=== PATIENT | male | born 1965 | race Caucasian/White ===

== ENCOUNTER 2023-05-18 13:55 | Emergency (ER) | payer BC ==
--- NOTE | 2023-05-18 14:31 | ED ---
General Adult HPI - General Source: patient, RN notes reviewed Mode of arrival: ambulatory Limitations: no limitations <Yaniv Chandler - Last Filed: 05/18/23 14:31> <Lisa Rubio - Last Filed: 05/19/23 00:29> - General Stated complaint: back pain Time Seen by Provider: 05/18/23 14:30 - History of Present Illness Initial comments: 58-year-old male presents emergency department for low back pain. Patient states that he has had a history of back surgery with fusion of his lumbar spine he states he recently moved here from [place] states that he felt something loose states he feels a warm sensation is low back after reaching into his trunk of his vehicle. Patient states his pain is unusual for him. (Yaniv Chandler) 58-year-old male with possible history of chronic back pain who presents emergency department with back pain. He recently moved here from [place]. States that he had surgery several years ago. He has suffered from chronic back pain since his fusion with some sciatica. He has several medications including [place] and muscle relaxers for the pain however he normally does not take them as he does not feel anything helps. He has been attempting to get into pain management here for injections. States that today he as he was coming into the emergency department for his back pain he received a call from them. Yesterday the patient was working on his truck and was bending over when he felt a burning sensation in his low back and states that it was slightly more intense than normal. He denies any saddle anesthesia. No bowel or bladder incontinence. States that usually when he lays down for about he can get his back to calm down however has been unsuccessful. Presents today requesting imaging to ensure that his hardware is in place. No fevers. No history of drug use. No other alleviating, precipitating modifying factors (Lisa Rubio) - Related Data Previous Rx's Medication Instructions Recorded methylPREDNISolone Dose Pack 4 mg PO DIRECTED #21 tab 05/18/23 [Medrol Dose Pack] Allergies Allergy/AdvReac Type Severity Reaction Status Date / Time No Known Allergies Allergy Verified 05/18/23 14:25 Review of Systems ROS Other: All systems not noted in ROS Statement are negative. <Yaniv Chandler - Last Filed: 05/18/23 14:31> ROS Other: All systems not noted in ROS Statement are negative. <Lisa Rubio - Last Filed: 05/19/23 00:29> ROS Statement: Those systems with pertinent positive or pertinent negative responses have been documented in the HPI. Past Medical History Past Medical History: Hearing Disorder / Deafness, Thyroid Disorder Additional Past Medical History / Comment(s): back pain History of Any Multi-Drug Resistant Organisms: None Reported Past Surgical History: Back Surgery Additional Past Surgical History / Comment(s): neck Past Psychological History: Anxiety Smoking Status: Never smoker Past Alcohol Use History: Occasional Past Drug Use History: None Reported <Yaniv Chandler - Last Filed: 05/18/23 14:31> General Exam Limitations: no limitations <Yaniv Chandler - Last Filed: 05/18/23 14:31> General appearance: alert, in no apparent distress Head exam: Present: atraumatic, normocephalic, normal inspection Eye exam: Present: normal appearance, PERRL, EOMI. Absent: scleral icterus, conjunctival injection, periorbital swelling ENT exam: Present: normal exam, mucous membranes moist Neck exam: Present: normal inspection. Absent: tenderness, meningismus, lymphadenopathy Respiratory exam: Present: normal lung sounds bilaterally. Absent: respiratory distress, wheezes, rales, rhonchi, stridor Cardiovascular Exam: Present: regular rate, normal rhythm, normal heart sounds. Absent: systolic murmur, diastolic murmur, rubs, gallop, clicks GI/Abdominal exam: Present: soft, normal bowel sounds. Absent: distended, tenderness, guarding, rebound, rigid Extremities exam: Present: normal inspection, full ROM, normal capillary refill. Absent: tenderness, pedal edema, joint swelling, calf tenderness Back exam: Present: normal inspection Neurological exam: Present: alert, oriented X3, CN II-XII intact Psychiatric exam: Present: normal affect, normal mood Skin exam: Present: warm, dry, intact, normal color. Absent: rash <Lisa Rubio - Last Filed: 05/19/23 00:29> - General Exam Comments Initial Comments: Visual Physical Exam Vital signs reviewed General: Well-appearing, nontoxic, no acute distress. Head: Normocephalic, atraumatic Eyes: PERRLA, EOMI ENT: Airway patent Chest: Nonlabored breathing Skin: No visual rash, normal skin tone Neuro: Alert and oriented 3 Musculoskeletal: No gross abnormalities (Yaniv Chandler) Course Vital Signs 05/18/23 05/18/23 14:25 17:47 Temperature 98.2 F 97.9 F Pulse Rate 70 60 Respiratory 16 18 Rate Blood Pressure 140/81 125/86 O2 Sat by Pulse 95 96 Oximetry Medical Decision Making <Yaniv Chandler - Last Filed: 05/18/23 14:31> <JoanneLisa A - Last Filed: 05/19/23 00:29> - Medical Decision Making I completed the quick note portion of this chart signed Yaniv Chandler PA-C (Yaniv Chandler) Was pt. sent in by a medical professional or institution (, PA, DIRECTOR SOFTWARE, urgent care, hospital, or fci...) When possible be specific @ -No Did you speak to anyone other than the patient for history (EMS, parent, family, police, friend...)? What history was obtained from this source @ -No Did you review nursing and triage notes (agree or disagree)? Why? @ -I reviewed and agree with nursing and triage notes Were old charts reviewed (outside hosp., previous admission, EMS record, old EKG, old radiological studies, urgent care reports/EKG's, fci records)? Report findings @ -Patient does have MRI and x-ray results from [place] which I reviewed Differential Diagnosis (chest pain, altered mental status, abdominal pain women, abdominal pain men, vaginal bleeding, weakness, fever, dyspnea, syncope, headache, dizziness, GI bleed, back pain, seizure, CVA, palpatations, mental health, musculoskeletal)? @ -Differential Back Pain: Strain, zoster, cauda equina syndrome, epidural abscess, vertebral osteomyelitis, discitis, fracture, subluxation, disc herniation, DJD, spinal stenosis, dissection, AAA, pancreatitis, peptic ulcer disease, pyelonephritis, kidney stone, this is not meant to be an all-inclusive list. EKG interpreted by me (3pts min.). @ -Not done X-rays interpreted by me (1pt min.). @ -Yes and demonstrates that the hardware is intact CT interpreted by me (1pt min.). @ -None done U/S interpreted by me (1pt. min.). @ -None done What testing was considered but not performed or refused? (CT, X-rays, U/S, labs)? Why? @ -None What meds were considered but not given or refused? Why? @ -Offered pain meds and muscle relaxers however patient refused Did you discuss the management of the patient with other professionals (professionals i.e. , PA, DIRECTOR SOFTWARE, lab, RT, psych nurse, social work assistant, lean manufacturing specialist, teacher, armored vehicle officer, family independence case manager)? Give summary @ -No Was smoking cessation discussed for >3mins.? @ -No Was critical care preformed (if so, how long)? @ -No Were there social determinants of health that impacted care today? How? (Homelessness, low income, unemployed, alcoholism, drug addiction, transportation, low edu. Level, literacy, decrease access to med. care, intermediate, rehab)? @ -No Was there de-escalation of care discussed even if they declined (Discuss DNR or withdrawal of care, Hospice)? DNR status @ -No What co-morbidities impacted this encounter? (DM, HTN, Smoking, COPD, CAD, Cancer, CVA, ARF, Chemo, Hep., AIDS, mental health diagnosis, sleep apnea, morbid obesity)? @ -Chronic back pain Was patient admitted / discharged? Hospital course, mention meds given and route, prescriptions, significant lab abnormalities, going to OR and other pertinent info. @ -Upon arrival patient was seen in the hallway. X-ray was performed to evaluate the patient's hardware. Results are discussed the patient. He is offered pain medications and muscle relaxers however he refuses. He is agreeable to a steroid injection and a Medrol Dosepak. He does have an appointment to follow up with pain management at this time. Instructed her to return for any new or worsening symptoms Undiagnosed new problem with uncertain prognosis? @ -No Drug Therapy requiring intensive monitoring for toxicity (Heparin, Nitro, Insulin, Cardizem)? @ -No Were any procedures done? @ -No Diagnosis/symptom? @ -Acute exacerbation of chronic back pain Acute, or Chronic, or Acute on Chronic? @ -Acute on chronic Uncomplicated (without systemic symptoms) or Complicated (systemic symptoms)? @ -uncomplicated Side effects of treatment? @ -No Exacerbation, Progression, or Severe Exacerbation? @ -Yes Poses a threat to life or bodily function? How? (Chest pain, [place], [place], pneumonia, PE, COPD, DKA, ARF, appy, cholecystitis, CVA, Diverticulitis, Homicidal, Suicidal, threat to staff... and all critical care pts) @ -No (Lisa Rubio) Disposition <Yaniv Chandler - Last Filed: 05/18/23 14:31> Is patient prescribed a controlled substance at d/c from ED?: No Time of Disposition: 17:21 <Lisa Rubio - Last Filed: 05/19/23 00:29> Clinical Impression: Mechanical back pain, Chronic back pain, Sciatica Disposition: HOME SELF-CARE Condition: Stable Instructions (If sedation given, give patient instructions): Chronic Back Pain (DC) Additional Instructions: Please take the steroids as directed. Follow-up with pain management. return for any new or worsening symptoms Prescriptions: methylPREDNISolone Dose Pack [Medrol Dose Pack] 4 mg PO DIRECTED #21 tab Referrals: None,Stated [Primary Care Provider] - 1-2 days
--- NOTE | 2023-05-18 14:56 | XR ---
EXAM TYPE: LUMBAR SPINE X RAY SERIES COMPARISON: NONE HISTORY: Pain TECHNIQUE: 4 views are submitted. FINDINGS: There is extensive postsurgical changes with grade 1 anterolisthesis L4-L5 and L5-S1. Disc spacers ar e seen at levels L2-L5. Transpedicular screws are noted. There is no prior exam available for compari son. No abnormal lucency seen surrounding the hardware to suggest malfunction. There is a retrolisthesis L1-L2 and L2-L3. Degenerative changes lower thoracic spine. Postsurgical ch anges extends across the SI joints on the frontal view. IMPRESSION: 1. Diffuse osteopenia. Extensive postsurgical change with alignment abnormalities as discussed above. No prior exam available for comparison. Correlate with CT scan as clinically warranted. 2. Moderate degenerative disc disease of lower thoracic spine.
[2023-05-18] MEDS ORDERED: methylPREDNISolone SOD SUCCI 125 MG/2 ML VIAL IM ONE (17:18)
[2023-05-18 18:04] VITALS: BP 125/86; PULSE 60; RESP 18; TEMP 97.9
== END 2023-05-18 17:50 | disposition home or self-care (01) ==
LOC: EC 13:55
DX: G89.29 Other chronic pain (principal); M54.50 Low back pain, unspecified; M54.30 Sciatica, unspecified side; Z86.59 Personal history of other mental and behavioral disorders
CPT/HCPCS: 72110; 99283; 96372; J2930

== ENCOUNTER → 2023-06-19 | Outpatient (CLI) | payer BC ==
[2023-06-19 11:55] VITALS: BP 157/101; PULSE 61; RESP 16
--- NOTE | 2023-06-19 14:01 | P.PAINPG ---
PQRS Measure Charge Sheet Comment: HISTORY OF PRESENT ILLNESS: A 58 yr old male as a referral from Dr Cheikh Franklin presents today w severe and chronic LBP x 6 mo secondary to post laminectomy syndrome for evaluation. Pt states pain level is provoked at 7/10 in intensity, constant, localized in the R lower lumbar spine, predominantly axial, stabbing in character w occasional shooting pain towards the back of the LEs and feet. Pain is provoked by over activity. Pain is alleviated by Pt x 6 wks in Feb 2023, massage therapy weekly x 4 wks which he is currently in, use of a TENS unit, alternating heat & ice3, medications (Tyl Arthritis), pain patches, repositioning and rest. Oswestry axial pain score at 25. PMH: OA, Hearing Disorder, Hypothyroid Disorder, Anxiety PSH: Cervical Surgery (2022), Cardiac Cath (2013), Lumbar Fusion, BL Knee Arthroscopy (1996, 2005), Biceps Tendon Repair (2015), Appendectomy (1976), Colonoscopy (2018), SH: Never smoker, Occasional ETOH use, No illicit drug use FH: Noncontributory All: See list Meds: See list REVIEW OF ORGAN SYSTEMS: CONSTITUTIONAL: No fevers or chills. No recent weight loss. NEUROLOGICAL: + numbness and tingling along the distal extremities. No seizure disorders or headaches. MUSCULOSKELETAL: + pain PSYCHIATRIC: Denies current depression or suicidal thoughts. Physical Examinations : Constitutional : Cooperative , not in acute distress . Neurologic : Cranial nerve II to XII intact. No focal neurological deficits. Psychiatric : alert & oriented x 3. Matching mood & appropriate affect. Judgment & insight intact. Musculoskeletal : Cervical Spine Motor strength in the deltoid and biceps: Normal right side. Normal Left side Motor strength biceps and the wrist extensors: Normal right side . Normal left side Motor strength in the triceps muscle: Normal right side. Normal left side Deep tendon reflexes: Normal at the biceps. Normal at Brachioradialis. Normal at triceps Vertebral body tenderness to deep palpation over Cervical facet loading test: positive bilaterally Spurling test: positive bilaterally Neck distraction test: positive bilaterally Yaniv sign: positive bilaterally Lumbar spine Motor strength lower extremities ,thigh and legs 5/5 Right side , 5/5 Left side Deep tendon reflexes : Normal Knee Jerk. Normal Ankle Jerk Vertebral body tenderness over L5 Starks Test positive over BL L5-S1 Lumbar facet Loading Test: positive Right / positive Left Range of motion of the lumbar spine Flexion 30 degrees, extension 10 degrees Straight Leg Raise test: Left/ Right positive at degrees Ken test: positive right / positive left. Severe tenderness over the Sacroiliac joint on the Right / Left sides Gaenslen test: positive bilaterally Seated flexion test: positive bilaterally. Sacral spine : Severe tenderness over the Sacroiliac joint: right side / left side Range of motion: Flexion of the lumbar spine <60 degrees Range of motion: Extension of the lumbar spine <20 degrees Gaenslen's Test positive Ken test: positive right side / left side Thigh Thrust Test Sacral Thrust Test Imaging: MRI noncontrast of the lumbar spine from 02/15/23 reviewed Assessment/ Plan : T12-S1 Fusion w L1-S1 laminectomy, post laminectomy syndrome Recommendation of BL TFESI L5-S1 #1. May need a series of injections for optimal pain relief. Risks, benefits of procedure discussed and patient verbalized understanding. Admits to anti- coagulant use or medical history of diabetes. Protocol for discontinuation/ continuation of medications sohan procedure discus sed. Minimal anesthesia provided, if clinically indicated, consisting of Versed and Fentanyl. All questions answered. I have spent greater than 30 minutes on patient care today. Dr Nunn was available by phone for the evaluation of this patient. The time was used to review the medical records including relevant urine studies and Prescription history (MAPs), review of the available imaging, evaluation and examination of the patient, coordination of care with the medical staff and if applicable referring physicians, as well as creation of the medical record Home Medications: Ambulatory Orders methylPREDNISolone Dose Pack [Medrol Dose Pack] 4 mg PO DIRECTED #21 tab 05/18/23 Controlled Substance Measures - Controlled Substance Measures Is patient prescribed a controlled substance at discharge?: No
== END ==
LOC: PNWHC3 11:03
PROVIDERS: ATTEND Specialist
DX: M96.1 Postlaminectomy syndrome, not elsewhere classified (principal); M43.27 Fusion of spine, lumbosacral region
CPT/HCPCS: 99211

== ENCOUNTER 2023-07-04 06:07 | Day surgery (SDC) | payer BC ==
[2023-06-28 12:11] VITALS: BMI 34.7
[2023-07-04] MEDS ORDERED: LACTATED RINGERS 1,000 ML IV SCH (06:19)
[2023-07-04 06:34] VITALS: RESP 18; TEMP 98
[2023-07-04] MEDS ORDERED: methylPREDNISolone ACETATE 80 MG/ML 1 ML VIAL ONE (07:07)
[2023-07-04] MEDS ORDERED: IOPAMIDOL M200 10 ML VIAL ONE (07:07)
--- NOTE | 2023-07-04 07:22 | P.PCN ---
Date of Procedure: 07/04/23 Procedure(s) Performed: PREOPERATIVE DIAGNOSIS: 1-Lumbar radiculopathy . 2-previous lumbar laminectomy and fusion surgery POSTOPERATIVE DIAGNOSIS: 1-lumbar radiculopathy. 2-previous lumbar laminectomy and fusion surgery PROCEDURE 1. Transforaminal epidural steroid injection under fluoroscopic guidance at bilateral L5-S1 level. (Fluoroscopy images stored on file in the radiology Department ) 2. Lumbar epidurogram . ANESTHESIA: Local with 1% lidocaine 3 ml. EBL: Minimal PROCEDURE INDICATION: The patient with low back pain and radiculopathy symptoms unresponsive to conservative treatment. PROCEDURE DESCRIPTION / TECHNIQUE: The patient was seen and identified in the preoperative area. Risks, benefits, complications, and alternatives were discussed with the patient. The patient agreed to proceed with the procedure and signed the consent. IV was started, and vital signs were stable. Patient was taken to the OR and time out was completed. The patient was placed in the prone position on procedure table and a pillow was placed under the abdomen to reduce lumbar lordosis. The lumbosacral area was prepped and draped in the usual sterile fashion. Critical pause was taken. Vital signs were closely monitored during the procedure. Using oblique fluoroscopy, the chin of the ``Ari dog at Right L5-S1 level was identified, and the skin and deeper tissues just below was localized with 1% lidocaine. Subsequently, a 22-gauge 5-inch spinal needle was advanced under a tunneled view fluoroscopic guidance just underneath the chin of the ``Ari dog at the right L5-S1 Under lateral fluoroscopy, the needle was then advanced to the posterior border of the interforaminal space. After negative aspiration of CSF and blood and with no paresthesias, 1 mL Isovue 200 contrast dye was injected excellent epidurogram and outlining of the nerve root Subsequently, 3 mL of block solution containing 40 mg Depo-Medrol and 2 mL of 0.9% normal saline PF was injected. Needle was removed and the same procedure was repeated at the left L5-S1 level . At the end of the procedure, skin was cleansed, and bandages were applied. COMPLICATIONS:none DISPOSITION / PLANS: The patient was placed in a supine position and transferred to the recovery area in a stable condition for observation. There was no evidence of lower extremity motor or sensory deficit after the procedure. Patient was discharged from the recovery room after meeting discharge criteria. Home discharge instructions were given to the patient by the staff. The patient was reexamined prior to discharge.
[2023-07-04 07:49] VITALS: BP 138/79; PULSE 62
--- NOTE | 2023-07-04 07:49 | FL ---
EXAMINATION TYPE: FL guided pain mgmt statistic Intraoperative/procedural fluoroscopic services were provided. Total fluoroscopy time is 4.3 seconds with a total of 5 submitted images to PACS. Please se e the operative/procedural note for further details. DAP: [id number] mGym2 Gycm2
--- NOTE | 2023-07-04 15:01 | P.PN ---
Progress Note - Text Progress Note Date: 07/04/23 This is 58 years old male, history of severe and chronic low back pain with radiation to the lower extremity bilaterally, and diagnosed with lumbar radiculopathy and he had a history of lumbar laminectomy and fusion surgery, today patient had transforaminal epidural steroid injection at L5-S1, and after patient discharged home, he called the pain clinic and he was complaining of severe positional headache, which is improved with lying supine and increases with sitting and standing position, we told the patient to come to the pain clinic for evaluation for possible blood patch, today in the preop holding area patient reports, severe positional headache which is increased with sitting and standing position, and I gave the patient the option of doing a bilateral eyes foraminal epidural blood patch at L5-S1, and I told the patient that there is no guarantee that doing this will El[place] 8 his pain/headache completely because it was technically difficult to identify the borderline of the epidural space, goes patient had a lot of hardware in the lumbar area, I discussed with the patient t he option of right conservative treatment first, and if it failed then we will proceed with the bilateral transforaminal epidural blood patch at L5-S1, patient will be given prescription for Motrin 800 mg 3 times a day when necessary for headache and also he will try Percocet 7.5/325 one tablet by mouth every 4 hours for the next 2-3 days, patient will contact the pain clinic in the next few days for reevaluation, patient denies any focal neurological deficit he denies any fever, his main problem is positional headache, for this reason the blood patch was canceled today
== END 2023-07-04 07:42 | disposition home or self-care (01) ==
LOC: ORPAIN 06:07
PROVIDERS: ATTEND Specialist
DX: M54.16 Radiculopathy, lumbar region (principal); Z79.82 Long term (current) use of aspirin; Z98.1 Arthrodesis status
CPT/HCPCS: 64483; J1040; Q9966

== ENCOUNTER → 2023-07-04 | Day surgery (SDC) | payer BC ==
[2023-07-04 14:12] VITALS: BP 160/85; PULSE 92; RESP 16; TEMP 98
== END ==
LOC: ORPAIN 13:59
PROVIDERS: ATTEND Specialist
DX: Z53.9 Procedure and treatment not carried out, unspecified reason (principal)

== ENCOUNTER → 2023-07-24 | Outpatient (CLI) | payer BC ==
[2023-07-24 11:34] VITALS: BP 147/77; PULSE 89; RESP 15; TEMP 98.4
--- NOTE | 2023-07-24 14:37 | P.PAINPG ---
PQRS Measure Charge Sheet Comment: HISTORY OF PRESENT ILLNESS: A 58 yr old male presents today w severe and chronic LBP x 6 mo secondary to post laminectomy syndrome for evaluation s/p BL TFESI L5-S1 #1. Pt states he experienced 0 % pain relief x 3 wks s/p procedure. Pt complained of HITCHCOCK s/p JENNIFER. Pt states pain level is provoked at 9/10 in intensity, constant, localized in the R lower lumbar spine, predominantly axial, stabbing in character w occasional shooting pain towards the back of the LEs and feet. Pain is provoked by over activity. Pain is alleviated by Pt x 6 wks in Feb 2023, massage therapy weekly x 4 wks which he is currently in, use of a TENS unit, alternating heat & ice, medications, pain patches, repositioning and rest. Oswestry axial pain score at 25. Interventional procedures include BL TFESI L5-S1 x1 Medications include Ibu 800mg #90, Trevorton #18 NR, Tyl Arthritis REVIEW OF ORGAN SYSTEMS: CONSTITUTIONAL: No fevers or chills. No recent weight loss. NEUROLOGICAL: + numbness and tingling along the distal extremities. No seizure disorders or headaches. MUSCULOSKELETAL: + pain PSYCHIATRIC: Denies current depression or suicidal thoughts. Physical Examinations : Constitutional : Cooperative , not in acute distress . Neurologic : Cranial nerve II to XII intact. No focal neurological deficits. Psychiatric : alert & oriented x 3. Matching mood & appropriate affect. Judgment & insight intact. Musculoskeletal : Cervical Spine Motor strength in the deltoid and biceps: Normal right side. Normal Left side Motor strength biceps and the wrist extensors: Normal right side . Normal left side Motor strength in the triceps muscle: Normal right side. Normal left side Deep tendon reflexes: Normal at the biceps. Normal at Brachioradialis. Normal at triceps Vertebral body tenderness to deep palpation over Cervical facet loading test: positive bilaterally Spurling test: positive bilaterally Neck distraction test: positive bilaterally Yaniv sign: positive bilaterally Lumbar spine Motor strength lower extremities ,thigh and legs 5/5 Right side , 5/5 Left side Deep tendon reflexes : Normal Knee Jerk. Normal Ankle Jerk Vertebral body tenderness over L5 Starks Test positive over BL L5-S1 Lumbar facet Loading Test: positive Right / positive Left Range of motion of the lumbar spine Flexion 30 degrees, extension 10 degrees Straight Leg Raise test: Left/ Right positive at degrees Ken test: positive right / positive left. Severe tenderness over the Sacroiliac joint on the Right / Left sides Gaenslen test: positive bilaterally Seated flexion test: positive bilaterally. Sacral spine : Severe tenderness over the Sacroiliac joint: right side / left side Range of motion: Flexion of the lumbar spine <60 degrees Range of motion: Extension of the lumbar spine <20 degrees Gaenslen's Test positive Ken test: positive right side / left side Thigh Thrust Test Sacral Thrust Test Imaging: MRI noncontrast of the lumbar spine from 02/15/23 reviewed Assessment/ Plan : T12-S1 Fusion w L1-S1 laminectomy, post laminectomy syndrome SCS information provided. Will follow up w spine surgeon in [place] he was referred to for additional treatment options. All questions answered. I have spent greater than 30 minutes on patient care today. Dr Nunn was available by phone for the evaluation of this patient. The time was used to review the medical records including relevant urine studies and Prescription history (MAPs), review of the available imaging, evaluation and examination of the patient, coordination of care with the medical staff and if applicable referring physicians, as well as creation of the medical record - Pain Location Bilateral Lower Back Non-Pharmacological Interventions: Ice, Massage, Position/Reposition Pharmacological Interventions: Epidural, PRN Medication PQRS Narrative: Hx Alcohol Use (MH) No Home Medications: Ambulatory Orders ALPRAZolam [Xanax] 1 mg PO BID PRN 06/28/23 Aspirin [Adult Low Dose Aspirin EC] 81 mg PO DAILY 06/28/23 Celecoxib [CeleBREX] 200 mg PO DAILY 06/28/23 Levothyroxine Sodium 200 mcg PO QAM 06/28/23 Liothyronine Sodium [Cytomel] 10 mcg PO QAM 06/28/23 Butalb/Acetaminophen/Caffeine [Fioricet 50-300-40 mg Capsule] mg PO PRN 07/04/23 Ibuprofen [Motrin] 800 mg PO Q8H PRN 10 Days #30 tab 07/04/23 oxyCODONE HCL/ACETAMINOPHEN [Percocet 7.5-325 mg] 1 tab PO Q4HR PRN 3 Days #18 tab 07/04/23 Controlled Substance Measures - Controlled Substance Measures Is patient prescribed a controlled substance at discharge?: No
== END ==
LOC: PNWHC3 10:59
PROVIDERS: ATTEND Specialist
DX: M96.1 Postlaminectomy syndrome, not elsewhere classified (principal); Z98.1 Arthrodesis status; Z79.82 Long term (current) use of aspirin
CPT/HCPCS: 99211

== ENCOUNTER 2023-09-07 07:11 | Day surgery (SDC) | payer BC ==
[2023-09-06 09:42] VITALS: BMI 34.7
[2023-09-07] MEDS: LACTATED RINGERS 1,000 ML IV SCH (08:20)
[2023-09-07 08:42] VITALS: TEMP 98
[2023-09-07] MEDS ORDERED: PROPOFOL 10 MG/ML 20 ML VIAL IV ONE (09:27)
[2023-09-07] MEDS ORDERED: LIDOCAINE 1% INJ 10MG/ML (20 ML MDV) ONE (09:27)
--- NOTE | 2023-09-07 09:30 | P.GSHP ---
History of Present Illness H&P Date: 09/07/23 Chief Complaint: Screening colonoscopy Is a 58-year-old male presents today for screening colonoscopy. Patient denies any significant GI complaints. Past Medical History Past Medical History: Hearing Disorder / Deafness, Sleep Apnea/CPAP/BIPAP, Thyroid Disorder Additional Past Medical History / Comment(s): Back pain. Bilateral hearing aids. CPAP use. History of Any Multi-Drug Resistant Organisms: None Reported Past Surgical History: Back Surgery, Orthopedic Surgery Additional Past Surgical History / Comment(s): Neck surgery, spinal fusion T11- S1. COLONOSCOPY, Past Anesthesia/Blood Transfusion Reactions: No Reported Reaction Smoking Status: Never smoker - Past Family History Father Family Medical History: Cancer Additional Family Medical History / Comment(s): Leukemia, prostate cancer. Medications and Allergies Home Medications Medication Instructions Recorded Confirmed Type ALPRAZolam [Xanax] 1 mg PO HS PRN 06/28/23 09/07/23 History Celecoxib [CeleBREX] 200 mg PO DAILY 06/28/23 09/07/23 History Levothyroxine Sodium 200 mcg PO QAM 06/28/23 09/07/23 History Liothyronine Sodium [Cytomel] 10 mcg PO QAM 06/28/23 09/07/23 History DULoxetine HCL [Cymbalta] 30 mg PO DAILY 09/06/23 09/07/23 History Allergies Allergy/AdvReac Type Severity Reaction Status Date / Time No Known Allergies Allergy Verified 09/07/23 08:34 Surgical - Exam Vital Signs Temp Pulse Resp BP Pulse Ox 98 F 65 16 134/84 97 09/07/23 08:32 09/07/23 08:32 09/07/23 08:32 09/07/23 08:32 09/07/23 08:32 - General well developed, well nourished, no distress - Eyes PERRL - ENT normal pinna - Neck no masses - Respiratory normal expansion - Cardiovascular Rhythm: regular - Abdomen Abdomen: soft, non tender Assessment and Plan Assessment: We'll perform screening colonoscopy.
--- NOTE | 2023-09-07 09:45 | P.OP ---
Date of Procedure: 09/07/23 Preoperative Diagnosis: Screening colonoscopy Postoperative Diagnosis: Rectal polyp Procedure(s) Performed: Colonoscopy Anesthesia: MAC Surgeon: Rex Carnes Pathology: other (Rectal polyp) Condition: stable Disposition: PACU Description of Procedure: The patient's placed on the endoscopy table in the lateral position. He received IV sedation. Digital rectal exam performed. This revealed no abnormalities. The flexible colonoscope was then placed patient anus passed throughout the entire colon. The ileocecal valve was visualized. The cecum, ascending and transverse colon appeared normal. The descending and sigmoid colon appeared normal. In the rectum and small pocket polyp. Removed with snare. The scope was then withdrawn for patient.
[2023-09-07 10:34] VITALS: BP 125/74; PULSE 50; RESP 16
== END 2023-09-07 11:00 | disposition home or self-care (01) ==
LOC: ORWHC2ENDO 07:11
PROVIDERS: ATTEND Surgery
DX: Z12.11 Encounter for screening for malignant neoplasm of colon (principal); K62.1 Rectal polyp; G47.33 Obstructive sleep apnea (adult) (pediatric); E07.9 Disorder of thyroid, unspecified; H91.90 Unspecified hearing loss, unspecified ear; F41.9 Anxiety disorder, unspecified; Z98.890 Other specified postprocedural states; Z85.46 Personal history of malignant neoplasm of prostate; Z79.890 Hormone replacement therapy; Z79.899 Other long term (current) drug therapy
CPT/HCPCS: 88305; 45385; J2001; J2704; 45380

== ENCOUNTER → 2023-09-25 | Outpatient (CLI) | payer BC ==
--- NOTE | 2023-09-25 12:24 | XR ---
EXAMINATION TYPE: XR lumbar spine 2 or 3V DATE OF EXAM: 09/25/2023 12:05 PM CLINICAL INDICATION:Male, 58 years old with history of Z98.1 arthrodesis status; COMPARISON: None TECHNIQUE: XR lumbar spine 2 or 3V - Frontal, lateral and coned in L5-S1 lateral views of the spine. FINDINGS: Fixation hardware extends from T12 to S1 with hardware intact. Disc spaces at L2-L3, L3-L4 and L4-L5. The posterior elements are poorly visualized due to fixation hardware. There is suggestion of osseous fusion of the posterior elements bilaterally. Laminectomy changes are present. No evidenc e of any acute osseous pathology. No evidence of loss of vertebral body height is seen. There is nor mal alignment of the lumbar vertebral bodies. No significant degeneration changes throughout the spin e. IMPRESSION: 1. Postsurgical changes throughout the spine with hardware intact. Consider further evaluation of th e abdomen with CT for evaluation for osseous fusion at multiple levels. 2. Moderate degeneration changes throughout the spine.
== END | disposition home or self-care (01) ==
LOC: RADXRMAIN 11:45
DX: M51.37 Other intervertebral disc degeneration, lumbosacral region (principal); Z98.1 Arthrodesis status
CPT/HCPCS: 72100

== ENCOUNTER 2023-11-01 21:13 | Emergency (ER) | payer BC ==
[2023-11-01] MEDS: GLUCAGON 1 MG/ML VIAL IM STA (21:55)
--- NOTE | 2023-11-01 22:12 | XR ---
EXAMINATION TYPE: XR chest 2V DATE OF EXAM: 11/01/2023 COMPARISON: None INDICATION: Foreign body sensation in esophagus TECHNIQUE: Frontal and lateral views of the chest are obtained. FINDINGS: The heart size is normal. The pulmonary vasculature is normal. The lungs are clear. No suspicious radiopaque foreign bodies within the [id number] IMPRESSION: 1. No acute pulmonary process. 2 no suspicious radiopaque foreign bodies.
[2023-11-01 22:32] LABS: Basophils # (A) 0.1 k/uL (0-0.2); Basophils % (A) 1 %; Eosinophils # (A) 0.2 k/uL (0-0.7); Eosinophils % (A) 3 %; HCT 48.2 % (39.0-53.0); HGB 15.5 gm/dL (13.0-17.5); Lymphocytes # (A) 1.4 k/uL (1.0-4.8); Lymphocytes % (A) 19 %; MCH 27.6 pg (25.0-35.0); MCHC 32.1 g/dL (31.0-37.0); MCV 86.1 fL (80.0-100.0); Monocytes # (A) 0.4 k/uL (0-1.0); Monocytes % (A) 6 %; Neutrophils # (A) 5.2 k/uL (1.3-7.7); Neutrophils % (A) 70 %; Platelet Count 195 k/uL (150-450); RDW 14.4 % (11.5-15.5); WBC 7.4 k/uL (3.8-10.6)
[2023-11-01] MEDS: MORPHINE SULFATE 4 MG/ML SYRINGE IVP STA (22:35)
[2023-11-01 22:47] VITALS: TEMP 98.1
[2023-11-01 22:49] LABS: ALT 33 U/L (4-49); AST 32 U/L (17-59); African American GFR (CKD) >90 (>60 ml/min/1.73 sqM); Albumin 4.8 g/dL (3.5-5.0); Alkaline Phosphatase 98 U/L (38-126); Anion Gap 15 mmol/L; Blood Urea Nitrogen 18 mg/dL (9-20); Calcium 9.3 mg/dL (8.4-10.2); Carbon Dioxide 18 mmol/L (22-30); Chloride 106 mmol/L (98-107); Glucose 173 mg/dL (74-99); Non-African American GFR(CKD) >90 (>60 ml/min/1.73 sqM); Potassium 3.2 mmol/L (3.5-5.1); Sodium 139 mmol/L (137-145); Total Bilirubin 0.8 mg/dL (0.2-1.3); Total Protein 8.2 g/dL (6.3-8.2)
--- NOTE | 2023-11-01 23:24 | ED ---
Abdominal Pain HPI - General Chief Complaint: Abdominal Pain Stated Complaint: HeartBurn, Vomiting Time Seen by Provider: 11/01/23 21:35 Source: patient Mode of arrival: ambulatory Limitations: no limitations - History of Present Illness Initial Comments: Izaiah is a 58yo M who presents to the ER via private vehicle for esophageal food bolus. Patient reports that he was eating steak and it got stuck in his esophagus. Feels like it is stuck in his mid chest, for the past hour he cannot even swallow his saliva. Patient reports this has happened once before and resolved without intervention after about 6-8hrs. - Related Data Home Medications Medication Instructions Recorded Confirmed ALPRAZolam [Xanax] 1 mg PO HS PRN 06/28/23 09/07/23 Celecoxib [CeleBREX] 200 mg PO DAILY 06/28/23 09/07/23 Levothyroxine Sodium 200 mcg PO QAM 06/28/23 09/07/23 Liothyronine Sodium [Cytomel] 10 mcg PO QAM 06/28/23 09/07/23 DULoxetine HCL [Cymbalta] 30 mg PO DAILY 09/06/23 09/07/23 Allergies Allergy/AdvReac Type Severity Reaction Status Date / Time No Known Allergies Allergy Verified 11/01/23 21:27 Review of Systems ROS Statement: Those systems with pertinent positive or pertinent negative responses have been documented in the HPI. ROS Other: All systems not noted in ROS Statement are negative. Past Medical History Past Medical History: Hearing Disorder / Deafness, Sleep Apnea/CPAP/BIPAP, Thyroid Disorder Additional Past Medical History / Comment(s): Back pain. Bilateral hearing aids. CPAP use. History of Any Multi-Drug Resistant Organisms: None Reported Past Surgical History: Back Surgery, Orthopedic Surgery Additional Past Surgical History / Comment(s): Neck surgery, spinal fusion T11- S1. COLONOSCOPY, Past Anesthesia/Blood Transfusion Reactions: No Reported Reaction Past Psychological History: Anxiety Smoking Status: Never smoker Past Alcohol Use History: Occasional Past Drug Use History: None Reported - Past Family History Father Family Medical History: Cancer Additional Family Medical History / Comment(s): Leukemia, prostate cancer. General Exam - General Exam Comments Initial Comments: Physical Exam GENERAL: Patient is well-developed and well-nourished. Appears uncomfortable HENT: Normocephalic, Atraumatic. EYES: PERRL, EOMI PULMONARY: Unlabored respirations CARDIOVASCULAR: RRR Warm and well perfused extremities ABDOMEN: Non-distended SKIN: No rashes or bruising : Deferred NEUROLOGIC: Alert and oriented Normal speech Normal gait MUSCULOSKELETAL: Moving all extremities with no apparent injury PSYCHIATRIC: No SI/HI Limitations: no limitations Course Vital Signs 11/01/23 11/01/23 21:27 22:44 Temperature 98.1 F Pulse Rate 81 74 Respiratory 20 Rate Blood Pressure 148/89 O2 Sat by Pulse 94 L 97 Oximetry Medical Decision Making - Medical Decision Making Was pt. sent in by a medical professional or institution (, MIL[employer], MIN[employer] INDU[employer]Y TEACHER, urgent care, hospital, or group home...) When possible be specific @ -No Did you speak to anyone other than the patient for history (EMS, parent, family, police, friend...)? What history was obtained from this source @ -No Did you review nursing and triage notes (agree or disagree)? Why? @ -I reviewed and agree with nursing and triage notes Were old charts reviewed (outside hosp., previous admission, EMS record, old EKG, old radiological studies, urgent care reports/EKG's, group home records)? Report findings @ -No old charts were reviewed Differential Diagnosis (chest pain, altered mental status, abdominal pain women, abdominal pain men, vaginal bleeding, weakness, fever, dyspnea, syncope, headache, dizziness, GI bleed, back pain, seizure, CVA, palpatations, mental health)? @ -Not applicable EKG interpreted by me (3pts min.). @ -As above X-rays interpreted by me (1pt min.). @ -[No free air or evidence of perforation CT interpreted by me (1pt min.). @ -None done U/S interpreted by me (1pt. min.). @ -None done What testing was considered but not performed or refused? (CT, X-rays, U/S, labs)? Why? @ -None What meds were considered but not given or refused? Why? @ -None Did you discuss the management of the patient with other professionals (professionals i.e. MILAGROS Acevedo, MINERAL INDU[employer]Y TEACHER, lab, RT, psych nurse, social insurance specialist, insulation supervisor, teacher, fiscal officer, case operator)? Give summary @ -With Dr. Holbrook who recommends transfer for evaluation by GI Was smoking cessation discussed for >3mins.? @ -No Was critical care preformed (if so, how long)? @ -No Were there social determinants of health that impacted care today? How? (Homelessness, low income, unemployed, alcoholism, drug addiction, transportation, low edu. Level, literacy, decrease access to med. care, alf, rehab)? @ -No Was there de-escalation of care discussed even if they declined (Discuss DNR or withdrawal of care, Hospice)? DNR status @ -No What co-morbidities impacted this encounter? (DM, HTN, Smoking, COPD, CAD, Cancer, CVA, ARF, Chemo, Hep., AIDS, mental health diagnosis, sleep apnea, morbid obesity)? @ -None Was patient admitted / discharged? Hospital course, mention meds given and route, prescriptions, significant lab abnormalities, going to OR and other pertinent info. @ -Discharged Patient was seen and evaluated patient reports feeling like he swallowed a piece of steak and it is stuck in his esophagus. Chest x-ray shows no signs of perforation, patient is not tolerating oral secretions. Patient was given glucagon patient tried that he will stop maneuver with em avinash, he had multiple of sowed's of nonbloody nonbilious emesis in which she regurgitated his saliva that he could not tolerate. He was then given some morphine and nitro, patient reported feeling much better less pressure tolerating some liquids. I did offer the patient transfer to outside facility for evaluation by GI however patient has experienced this in the past that has resolved without intervention so he would like to be discharged home he will return or seek care at an outside facility should he have persistent symptoms. Advised the patient that even if the symptoms resolve he needs follow-up with GI for further evaluation to see if there is a mass or stricture or any reason for this obstruction. Undiagnosed new problem with uncertain prognosis? @ -No Drug Therapy requiring intensive monitoring for toxicity (Heparin, Nitro, Insulin, Cardizem)? @ -No Were any procedures done? @ -No Diagnosis/symptom? @ -Esophageal food bolus Acute, or Chronic, or Acute on Chronic? @ -Acute Uncomplicated (without systemic symptoms) or Complicated (systemic symptoms)? @ -Uncomplicated Side effects of treatment? @ -No Exacerbation, Progression, or Severe Exacerbation? @ -No Poses a threat to life or bodily function? How? (Chest pain, USA, PA, pneumonia, PE, COPD, DKA, ARF, appy, cholecystitis, CVA, Diverticulitis, Homicidal, Suicidal, threat to staff... and all critical care pts) @ -No - Lab Data Result diagrams: 11/01/23 22:20 11/01/23 22:20 Lab Results 11/01/23 11/01/23 Range/Units 22:20 22:20 WBC 7.4 (3.8-10.6) k/uL RBC 5.60 (4.30-5.90) m/uL Hgb 15.5 (13.0-17.5) gm/dL Hct 48.2 (39.0-53.0) % MCV 86.1 (80.0-100.0) fL MCH 27.6 (25.0-35.0) pg MCHC 32.1 (31.0-37.0) g/dL RDW 14.4 (11.5-15.5) % Plt Count 195 (150-450) k/uL MPV 8.0 Neutrophils % 70 % Lymphocytes % 19 % Monocytes % 6 % Eosinophils % 3 % Basophils % 1 % Neutrophils # 5.2 (1.3-7.7) k/uL Lymphocytes # 1.4 (1.0-4.8) k/uL Monocytes # 0.4 (0-1.0) k/uL Eosinophils # 0.2 (0-0.7) k/uL Basophils # 0.1 (0-0.2) k/uL Sodium 139 (137-145) mmol/L Potassium 3.2 L (3.5-5.1) mmol/L Chloride 106 (98-107) mmol/L Carbon Dioxide 18 L (22-30) mmol/L Anion Gap 15 mmol/L BUN 18 (9-20) mg/dL Creatinine 0.89 (0.66-1.25) mg/dL Est GFR (CKD-EPI)AfAm >90 (>60 ml/min/1.73 sqM) Est GFR (CKD-EPI)NonAf >90 (>60 ml/min/1.73 sqM) Glucose 173 H (74-99) mg/dL Calcium 9.3 (8.4-10.2) mg/dL Total Bilirubin 0.8 (0.2-1.3) mg/dL AST 32 (17-59) U/L ALT 33 (4-49) U/L Alkaline Phosphatase 98 (38-126) U/L Total Protein 8.2 (6.3-8.2) g/dL Albumin 4.8 (3.5-5.0) g/dL - EKG Data -: EKG Interpreted by Me EKG Comments: EKG interpreted by me EKG obtained due to central chest pain EKG obtained at 2317 rate is 55 rhythm is sinus bradycardia with a right bundle branch block, [place] 189 QRS 135 QTc [address] elevations or depressions no evidence of ischemia or infarction. Disposition Clinical Impression: Food bolus obstruction of intestine Disposition: HOME SELF-CARE Condition: Stable Additional Instructions: If symptoms resolve you still need to follow-up with GI for endoscopy, if symptoms do not resolve seek care at the emergency department again for reevaluation the nearest emergency department that will have access to a GI specialist from this location [facility] Is patient prescribed a controlled substance at d/c from ED?: No Referrals: Esdras Trinidad Jr, DO [Primary Care Provider] - 1-2 days
[2023-11-01] MEDS: SODIUM CHLORIDE 0.9% 1,000 ML IV SCH (23:40)
[2023-11-02] MEDS: NITROGLYCERIN SL TABS 0.4 MG TAB SUBLINGUAL STA (00:18)
[2023-11-02 02:25] VITALS: BP 149/89; PULSE 79; RESP 16
== END 2023-11-02 01:43 | disposition home or self-care (01) ==
LOC: EC 21:13
DX: K56.699 Other intestinal obstruction unspecified as to partial versus complete obstruction (principal)
CPT/HCPCS: 99284 ×2; 96374 ×2; 96372 ×2; 96361 ×4; 36415; 93005; 80053; 85025; 71046; J2270; J1610

== ENCOUNTER 2023-12-16 10:16 | Emergency (ER) | payer BC ==
--- NOTE | 2023-12-16 11:13 | ED ---
Back Pain HPI - General Chief Complaint: Back Pain/Injury Stated Complaint: Back Pain Time Seen by Provider: 12/16/23 11:10 Source: patient, RN notes reviewed Mode of arrival: ambulatory Limitations: no limitations - History of Present Illness Initial Comments: This is a 58-year-old male who presents to the emergency department for left lower back pain. States that it started 4 days ago after he went to bend over to pick something up. He felt a pop or a crack sensation in his back when he did this. States that he had a lumbar fusion in [place] last year and is concerned about a problem with the cage. He is using [id number] medication without any relief. Describes this as more of a burning sensation. Denies any loss of bowel/bladder control or saddle anesthesia. MD Complaint: back pain - Related Data Home Medications Medication Instructions Recorded Confirmed ALPRAZolam [Xanax] 1 mg PO HS PRN 06/28/23 09/07/23 Celecoxib [CeleBREX] 200 mg PO DAILY 06/28/23 09/07/23 Levothyroxine Sodium 200 mcg PO QAM 06/28/23 09/07/23 Liothyronine Sodium [Cytomel] 10 mcg PO QAM 06/28/23 09/07/23 DULoxetine HCL [Cymbalta] 30 mg PO DAILY 09/06/23 09/07/23 Previous Rx's Medication Instructions Recorded HYDROcodone/APAP 7.5-325MG [Bishop 1 tab PO Q6HR PRN 3 Days #12 tab 12/16/23 7.5-325] methocarbamoL [Robaxin-750] 1,500 mg PO TID PRN #30 tab 12/16/23 predniSONE 50 mg PO DAILY 5 Days #5 tab 12/16/23 Allergies Allergy/AdvReac Type Severity Reaction Status Date / Time No Known Allergies Allergy Verified 11/01/23 21:27 Review of Systems ROS Statement: Those systems with pertinent positive or pertinent negative responses have been documented in the HPI. ROS Other: All systems not noted in ROS Statement are negative. Past Medical History Past Medical History: Hearing Disorder / Deafness, Sleep Apnea/CPAP/BIPAP, Thyroid Disorder Additional Past Medical History / Comment(s): Back pain. Bilateral hearing aids. CPAP use. History of Any Multi-Drug Resistant Organisms: None Reported Past Surgical History: Back Surgery, Orthopedic Surgery Additional Past Surgical History / Comment(s): Neck surgery, spinal fusion T11- S1. COLONOSCOPY, Past Anesthesia/Blood Transfusion Reactions: No Reported Reaction Past Psychological History: Anxiety Smoking Status: Never smoker Past Alcohol Use History: Occasional Past Drug Use History: None Reported - Past Family History Father Family Medical History: Cancer Additional Family Medical History / Comment(s): Leukemia, prostate cancer. General Exam Limitations: no limitations General appearance: alert, in no apparent distress Head exam: Present: atraumatic, normocephalic, normal inspection Respiratory exam: Present: normal lung sounds bilaterally. Absent: respiratory distress, wheezes, rales, rhonchi, stridor Cardiovascular Exam: Present: regular rate, normal rhythm, normal heart sounds. Absent: systolic murmur, diastolic murmur, rubs, gallop, clicks Back exam: Present: other (Tenderness to palpation over the left lower back) Neurological exam: Present: alert, oriented X3, CN II-XII intact Psychiatric exam: Present: normal affect, normal mood Skin exam: Present: warm, dry, intact, normal color. Absent: rash Course Vital Signs 12/16/23 12/16/23 12/16/23 10:55 12:21 13:59 Temperature 98.1 F 99.0 F 97.8 F Pulse Rate 62 69 51 L Respiratory 16 16 16 Rate Blood Pressure 159/79 138/79 O2 Sat by Pulse 98 97 95 Oximetry 12/16/23 14:32 Temperature Pulse Rate 64 Respiratory 18 Rate Blood Pressure 143/84 O2 Sat by Pulse 97 Oximetry Medical Decision Making - Medical Decision Making This is a 58 year old male who presents to the emergency department for back pain. Was pt. sent in by a medical professional or institution? @ -No Did you speak to anyone other than the patient for history? @ -No Did you review nursing and triage notes? @ -Yes, and I agree, it is accurate with regards to the patient's symptoms. Were old charts reviewed? @ -No Differential Diagnosis? @ -Differential Back Pain: Strain, zoster, cauda equina syndrome, epidural abscess, vertebral osteomyelitis, discitis, fracture, subluxation, disc herniation, DJD, spinal stenosis, dissection, AAA, pancreatitis, peptic ulcer disease, pyelonephritis, kidney stone, this is not meant to be an all-inclusive list. EKG interpreted by me (3pts min.)? @ -Not obtained X-rays interpreted by me (1pt min.)? @ -X-ray of the lumbar spine obtained. My interpretation identifies a broken left sacroiliac screw CT interpreted by me (1pt min.)? @ -Not obtained U/S interpreted by me (1pt. min.)? @ -Not obtained What testing was considered but not performed? (CT, X-rays, U/S, labs)? Why? @ -None What meds were considered but not given? Why? @ -None Did you discuss the management of the patient with other professionals? @ -No Did you reconcile home meds? @ -No Was smoking cessation discussed for >3mins.? @ -No Was critical care preformed (if so, how long)? @ -No Were there social determinants of health that impacted care today? How? (Homelessness, low income, unemployed, alcoholism, drug addiction, transportation, low edu. Level, literacy, decrease access to med. care, residential, rehab)? @ -No Was there de-escalation of care discussed even if they declined? (Discuss DNR or withdrawal of care, Hospice)? @ -No What co-morbidities impacted this encounter? (DM, HTN, Smoking, COPD, CAD, Cancer, CVA, Hep., AIDS, mental health diagnosis, sleep apnea, morbid obesity)? @ -None Was patient admitted / discharged? @ -Discharged. X-ray of the lumbar spine obtained demonstrating a fracture of the left sacroiliac joint screw. The remainder of the hardware is intact. There is no evidence of any acute osseous fractures. Pain was treated in the emergency department. Prescription for prednisone, Robaxin, and Bishop provided with dosing instructions reviewed. He was given information for follow-up with orthopedic spine and he is advised to contact them for a follow-up appointment. Undiagnosed new problem with uncertain prognosis? @ -None Drug Therapy requiring intensive monitoring for toxicity (Heparin, Nitro, Insulin, Cardizem)? @ -None Were any procedures done? @ -None Diagnosis/symptom? @ -History of lumbar and sacroiliac fusion, breakdown of internal fixation device of vertebrae Acute, or Chronic, or Acute on Chronic? @ -Acute Uncomplicated (without systemic symptoms) or Complicated (systemic symptoms)? @ -Uncomplicated Side effects of treatment? @ -None Exacerbation, Progression, or Severe Exacerbation] @ -Not applicable Poses a threat to life or bodily function? @ -The pain may limit his functioning Return precautions reviewed in depth, the patient is instructed to return to the emergency department with any new, worsening, or concerning symptoms. Patient verbalized understanding. This case was discussed in detail with the attending ED physician, Dr. Ayala. Presentation, findings, and treatment plan discussed in detail as well. - Radiology Data Radiology results: report reviewed, image reviewed Disposition Clinical Impression: History of lumbar fusion, Fusion of sacral region of spine, Mechanical breakdown of internal fixation device of vertebrae Disposition: HOME SELF-CARE Additional Instructions: Return to the emergency department with any new, worsening, or concerning symptoms. Take the prednisone daily for 5 days. You can take the Robaxin as 1 to 2 tablets up to 3-4 times daily. Take the Bishop sparingly when your pain is the most severe. You can continue applying the capsaicin cream provided here up to 4 times daily to see if that offers any additional relief. Contact the information assurance specialist listed below for a follow-up appointment. Let them know that you were seen in the emergency department and found to have a broken screw of the left sacroiliac joint. They will schedule you for a follow-up appointment. Follow up with your primary care provider in 1-2 days. Prescriptions: HYDROcodone/APAP 7.5-325MG [Bishop 7.5-325] 1 tab PO Q6HR PRN 3 Days #12 tab PRN Reason: Pain predniSONE 50 mg PO DAILY 5 Days #5 tab methocarbamoL [Robaxin-750] 1,500 mg PO TID PRN #30 tab PRN Reason: Pain Is patient prescribed a controlled substance at d/c from ED?: Yes When asked, does pt state using other controlled substances?: Yes If prescribed controlled substance>3 days was MAPS reviewed?: Prescribed <3 Days Referrals: Esdras Trinidad Jr, DO [Primary Care Provider] - 1-2 days Ludwin Muse DO [Doctor of Osteopathic Medicine] - 1-2 days Arcenio Yusuf DO [Doctor of Osteopathic Medicine] - 1-2 days
--- NOTE | 2023-12-16 12:07 | XR ---
EXAMINATION TYPE: XR lumbar spine 2 or 3V DATE OF EXAM: 12/16/2023 11:31 AM CLINICAL INDICATION:Male, 58 years old with history of back pain; [facility] COMPARISON: 09/25/2023 TECHNIQUE: XR lumbar spine 2 or 3V - Frontal, lateral and coned in L5-S1 lateral views of the spine. FINDINGS: Fixation changes throughout the spine spine and sacroiliac joints is fractured left sacroil iac joint screw. The remainder of the hardware appears intact.. Grade 2 anterolisthesis of L5 on S1. Retrolisthesis of L1 on L2. Moderate multilevel degeneration with osteophyte formation disc space lena rowing and facet arthropathy. IMPRESSION: 1. New Fracture left sacroiliac joint screw., The remainder of the hardware appears intact. 2. No evidence of acute osseous fracture 3. Moderate multilevel degeneration of the spine.
[2023-12-16] MEDS: KETOROLAC 15 MG/ML 1 ML VIAL IVP STA (13:32)
[2023-12-16] MEDS: DEXAMETHASONE SOD PHOSPHATE 10 MG/ML 1 ML VIAL IVP STA (13:37)
[2023-12-16] MEDS: ORPHENADRINE 30 MG/ML 2 ML VIAL IVP STA (13:41)
[2023-12-16] MEDS: CAPSAICIN 0.025% CREAM 60 GM TUBE TOPICAL ONE (13:47)
[2023-12-16] MEDS: HYDROmorphone 1 MG/ML 1 ML SYRINGE IVP STA (13:52)
[2023-12-16 14:02] VITALS: TEMP 97.8
[2023-12-16 14:33] VITALS: BP 143/84; PULSE 64; RESP 18
== END 2023-12-16 14:35 | disposition home or self-care (01) ==
LOC: EC 10:16
DX: M43.28 Fusion of spine, sacral and sacrococcygeal region (principal); M96 Intraoperative and postprocedural complications and disorders of musculoskeletal system, not elsewhere classified
CPT/HCPCS: 72100; 99283; 96374; 96375 ×3; J1100; J2360; J1170; J1885

== ENCOUNTER → 2024-11-27 | Outpatient (CLI) | payer BC ==
--- NOTE | 2024-11-27 11:48 | XR ---
EXAMINATION TYPE: XR lumbar spine 2 or 3V DATE OF EXAM: 11/27/2024 11:18 AM COMPARISON: 12/16/2023 CLINICAL INDICATION: Male, 59 years old with history of M54.50 LOW BACK PAIN, pain TECHNIQUE: 3 view(s) obtained. FINDINGS: Pedicle screws and fixation rods are present through the lumbar spine. Disc spaces are present L3-4 L 4-5 and L5-S1. The fracture of the left sacroiliac screw appears stable from comparison. IMPRESSION: 1. Surgical changes are stable from comparison. [facility], , 11/27/2024 11:45 AM
== END | disposition home or self-care (01) ==
LOC: RADXRMAIN 10:58
PROVIDERS: ATTEND Internal Medicine Geriatric Medicine
DX: M54.50 Low back pain, unspecified (principal); Z98.890 Other specified postprocedural states
CPT/HCPCS: 72100